=== PATIENT | male | born 1965 | race Caucasian/White ===

== ENCOUNTER 2021-07-05 06:25 | Day surgery (SDC) | payer OTHER ==
[~2021-07-05 06:25] MED LIST: Acetaminophen 325 MG Tab PO SCH; Lactated Ringers 1,000 ML IV SCH; Lidocaine 1%/Sod Bicarbonate in NS 8.4% 1 ML Syringe IDERM PRN; Morphine 8 MG, EPINEPHrine 0.3 MG, Cefuroxime 750 MG, Ketorolac 30 MG, Sodium Chloride ... PRN; Pregabalin 25 MG Cap PO SCH; Sodium Chloride 0.9% 10 ML Syringe FLUSH PRN; Sodium Chloride 0.9% 10 ML Syringe FLUSH SCH; oxyCODONE ER 10 MG TAB.ER PO SCH
[2021-07-05] MEDS ORDERED: Propofol 200 MG/20 ML SDV ONE ×2 (06:38→09:13)
[2021-07-05] MEDS ORDERED: Lidocaine 1% 5 ML VIAL ONE (06:39)
[2021-07-05] MEDS ORDERED: Midazolam 1 MG/ML 2 ML SDV ONE (06:39)
[2021-07-05] MEDS ORDERED: fentaNYL 100 MCG/2 ML SDV ONE (06:45)
[2021-07-05] MEDS ORDERED: fentaNYL 100 MCG/2 ML SDV IVPUSH PRN (07:09)
[2021-07-05] MEDS ORDERED: Ondansetron 4 MG/2 ML SDV IVPUSH PRN (07:09)
[2021-07-05] MEDS ORDERED: HYDROmorphone 0.5 MG/0.5 ML Syringe IVPUSH PRN (07:09)
[2021-07-05] MEDS ORDERED: ceFAZolin 1 GM Vial ONE (07:14)
[2021-07-05] MEDS ORDERED: Vancomycin 1 GM SDV ONE (07:44)
[2021-07-05] MEDS ORDERED: ePHEDrine 50 MG/ML SDV ONE (08:37)
[2021-07-05] MEDS ORDERED: oxyCODONE 5 MG Tab PO PRN ×2 (09:41→14:47)
== END 2021-07-05 15:09 | disposition home or self-care (01) ==
LOC: JD.SDS 06:25
PROVIDERS: ATTEND Orthopaedic Surgery
DX: M16.12 Unilateral primary osteoarthritis, left hip (principal); G89.29 Other chronic pain; M71.349 Other bursal cyst, unspecified hand; N40.0 Benign prostatic hyperplasia without lower urinary tract symptoms; H54.7 Unspecified visual loss; S46.819S Strain of other muscles, fascia and tendons at shoulder and upper arm level, unspecified arm, sequela; K21.9 Gastro-esophageal reflux disease without esophagitis; E66.01 Morbid (severe) obesity due to excess calories; Z68.39 Body mass index [BMI] 39.0-39.9, adult; Z88.0 Allergy status to penicillin; Z79.899 Other long term (current) drug therapy; X58.XXXS Exposure to other specified factors, sequela
CPT/HCPCS: 0055T; 27130; 36415; 73501; 86850; 86900; 86901; 97110; 97116; 97161; A9270; C1713; C1776; J0171; J0690; J0697; J1885; J2250; J2270; J2704; J3010; J3370; J7120; J2370

== ENCOUNTER 2022-03-14 11:16 | Day surgery (SDC) | payer OTHER ==
[~2022-03-14 11:16] MED LIST changes: -Acetaminophen 325 MG Tab PO SCH; -Morphine 8 MG, EPINEPHrine 0.3 MG, Cefuroxime 750 MG, Ketorolac 30 MG, Sodium Chloride ... PRN; -Pregabalin 25 MG Cap PO SCH; -Sodium Chloride 0.9% 10 ML Syringe FLUSH SCH; -oxyCODONE ER 10 MG TAB.ER PO SCH
[2022-03-14] MEDS ORDERED: Lidocaine 1% 30 ML SDV ONE (11:51)
[2022-03-14] MEDS ORDERED: Bupivacaine 0.5%/EPINEPHrine 1:200,000 50 ML MDV ONE (11:51)
[2022-03-14] MEDS ORDERED: Rocuronium 50 MG/5 ML Vial ONE ×2 (12:48→14:43)
[2022-03-14] MEDS ORDERED: Propofol 200 MG/20 ML SDV ONE (12:48)
[2022-03-14] MEDS ORDERED: Ondansetron 4 MG/2 ML SDV ONE (12:48)
[2022-03-14] MEDS ORDERED: Lidocaine 1% 5 ML VIAL ONE (12:49)
[2022-03-14] MEDS ORDERED: Midazolam 1 MG/ML 2 ML SDV ONE (12:49)
[2022-03-14] MEDS ORDERED: fentaNYL 100 MCG/2 ML SDV ONE ×2 (13:34→16:15)
[2022-03-14] MEDS ORDERED: Lactated Ringers 1,000 ML ONE ×2 (13:34→16:16)
[2022-03-14] MEDS ORDERED: Dexamethasone 4 MG/ML 5 ML MDV ONE (13:53)
[2022-03-14] MEDS ORDERED: Clindamycin Phosphate in D5W 900 MG in Premix Bag 1 BAG IV ONE ×2 (13:56)
[2022-03-14] MEDS ORDERED: Clindamycin Phosphate in D5W 50 ML IV ONE (14:01)
[2022-03-14] MEDS ORDERED: HYDROmorphone 0.5 MG/0.5 ML Syringe ONE ×2 (14:36→14:54)
[2022-03-14] MEDS ORDERED: Ondansetron 4 MG/2 ML SDV IVPUSH PRN (14:55)
[2022-03-14] MEDS ORDERED: Sugammadex Sodium 200 MG/2 ML VIAL ONE (15:41)
[2022-03-14] MEDS ORDERED: Ketorolac 30 MG/ML SDV ONE (15:54)
[2022-03-14] MEDS: HYDROmorphone 0.5 MG/0.5 ML Syringe IVPUSH PRN ×2 (16:44→17:30)
[2022-03-14] MEDS ORDERED: Finasteride 5 MG Tab PO STA (17:00)
[2022-03-14] MEDS: fentaNYL 100 MCG/2 ML SDV IVPUSH PRN ×2 (17:00→17:05)
[2022-03-14] MEDS ORDERED: Tamsulosin 0.4 MG Cap.ER PO ONE (17:02)
[2022-03-14] MEDS ORDERED: Acetaminophen/oxyCODONE 325-5 MG Tab PO ONE ×2 (17:39→20:35)
[2022-03-14] MEDS ORDERED: LORazepam 0.5 MG Tab PO PRN (19:52)
[2022-03-14] MEDS ORDERED: Methocarbamol 500 MG Tab PO PRN ×2 (19:53→21:38)
[2022-03-14] MEDS: Sodium Chloride 0.9% 10 ML Syringe FLUSH SCH ×2 (23:47→23:48)
[2022-03-15] MEDS: Acetaminophen/oxyCODONE 325-5 MG Tab PO PRN ×2 (02:03→06:12)
== END 2022-03-15 08:45 | disposition home or self-care (01) ==
LOC: JD.SDS 11:16
PROVIDERS: ATTEND Surgery
DX: K40.20 Bilateral inguinal hernia, without obstruction or gangrene, not specified as recurrent (principal); K42.0 Umbilical hernia with obstruction, without gangrene; M19.90 Unspecified osteoarthritis, unspecified site; K21.9 Gastro-esophageal reflux disease without esophagitis; N40.1 Benign prostatic hyperplasia with lower urinary tract symptoms; R39.9 Unspecified symptoms and signs involving the genitourinary system; E66.01 Morbid (severe) obesity due to excess calories; Z88.0 Allergy status to penicillin; Z98.890 Other specified postprocedural states; Z79.899 Other long term (current) drug therapy; Z68.36 Body mass index [BMI] 36.0-36.9, adult; Z98.84 Bariatric surgery status
CPT/HCPCS: 49650; A9270; C1765; C1781; J1100; J1170; J1885; J2250; J2405; J2704; J3010; J3490; J7120